=== PATIENT | female | born 1965 | race Caucasian/White ===

== ENCOUNTER 2023-01-27 16:30 | Outpatient (RCR) | payer OTHER, SELFPAY | END 2023-04-24 16:18 | disposition home or self-care (01) | PROVIDERS: PCP Family Medicine; Visit Provider Family Medicine | DX: M77.01 Medial epicondylitis, right elbow (principal); Z51.89 Encounter for other specified aftercare | CPT/HCPCS: 97035; 97140; 97165 ==

== ENCOUNTER 2023-04-20 16:47 | Outpatient (RCR) | payer BC, SELFPAY | END 2023-07-08 10:17 | disposition home or self-care (01) | PROVIDERS: PCP Family Medicine; Visit Provider Family Medicine | DX: M77.01 Medial epicondylitis, right elbow (principal); Z51.89 Encounter for other specified aftercare | CPT/HCPCS: 97110; 97161 ==